=== PATIENT | male | born 1965 | race Caucasian/White ===

== ENCOUNTER 2023-10-26 09:10 | Inpatient (IN) | payer BC ==
[~2023-10-26] VITALS: Ht 167.6 cm; Wt 95.7 kg
[2023-11-07] VITALS (15 sets, daily range): BP systolic 110–138; BP diastolic 65–88; PULSE 91–118; TEMP 97.6–99.7
[2023-11-07 08:24] LABS: HEMATOCRIT 44.9 % (42.0-52.0); HEMOGLOBIN 15.8 g/dl (13.5-18.0); MEAN CELL VOLUME 88 fl (80.0-100.0); MEAN CORPUSCULAR HEMOGLOBIN 31 pg (27-31); MEAN CORPUSCULAR HGB CONC 35 g/dl (33.0-37.0); MEAN PLATELET VOLUME 8.5 fl (7.4-10.4); PLATELET COUNT 291 K/mm3 (130-400); RED BLOOD COUNT 5.13 M/mm3 (4.20-5.60)
[2023-11-07] MEDS ORDERED: TRICOR145 MG PO (08:27)
[2023-11-07 08:38] LABS: CALCIUM 9.3 mg/dL (8.4-10.2); CREATININE, serum 1.28 mg/dL (0.72-1.25); POTASSIUM 4.2 mmol/L (3.5-4.5)
--- NOTE | 2023-11-07 08:41 | NUR ---
0735-PATIENT ARRIVED TO [facility] [place] [facility] VIA AMBULATION, GAIT STEADY, ALERT AND ORIENTED ON ARRIVAL. CONSENTS REVIEWED AND SIGNED. ALLERGIES, MEDICATIONS, MEDICAL HISTORY REVIEWED, PLAN OF CARE DISCUSSED AND QUESTIONS INVITED. PATIENT CHANGED INTO GOWN INDEPENDENTLY, WARM BLANKET PROVIDED. VITAL SIGNS TAKEN, VSS. RT AT BEDSIDE FOR EKG. LAB AT BEDSIDE, IV STARTED TO LH AND LABS DRAWN. PO MEDICATIONS AND IV FLUIDS AND ANTIBIOTICS STARTED PER ORDER. SPOUSE BROUGHT TO BEDSIDE. PATIENT TAKEN TO PACU FOR BLOCK, ALL BELONGINGS TAKEN TO ROOM 347 AND GLASSES PLACED ON BEDSIDE TABLE.
--- NOTE | 2023-11-07 14:37 | NUR ---
Pt arrived to the floor recently from [facility]. Pt is alert and oriented, sleepy but does wake easily. Pt does have family at bedside. ABD with 5 lap sites all well approximated with no drainage noted. Pt is tolerating ice water. Schedule tylenol given. Pt denies wanting any other clear liquids at this time. Bowel sounds absent, lung sounds clear and heart rate regular. Pt does have SCDs on bilaterally and IVF infusing to his left hand IV. Pt was oriented to his room as well as family in the room. No needs at this time, call light within reach
--- NOTE | 2023-11-07 16:15 | NUR ---
PATIENT ALERT AND ORIENTED X4. VSS. PATIENT DROWSY, DENIES PAIN AT THIS TIME. LAPS X4, CDI WITH SKIN GLUE. ONE LOW TRANSVERSE CDI WITH SKIN GLUE. PATIENT DENIES PAIN AT THIS TIME. IV TO LEFT HAND WITH LR RUNNING AT 75ML/HOUR. PATIENT RESTING IN BED ON POST OP VITALS. PATIENT ON 1L NC, RA BASELINE. NO FURTHER NEEDS. CALL LIGHT IN REACH.
--- NOTE | 2023-11-07 16:49 | NUR ---
PATIENT VERY DROWSY, ABLE TO TOLERATE ICE CHIPS AND JELL-O.
--- NOTE | 2023-11-07 18:31 | NUR ---
PATIENT OFF OF POST OP VITALS. PATIENT ON RA. RATING PAIN AT 3/10, NO NEED FOR PAIN MEDICATIONS. PATIENT TOLERATING CLEARS. PASSING GAS, VOIDING. NO BM.
--- NOTE | 2023-11-07 19:04 | NUR ---
awake resting in bed, bedside shift report received from LE Mcmillan
--- NOTE | 2023-11-07 19:45 | NUR ---
full assessment completed, see interventions for further info, assisted up to bathroom, he states he had a small bowel movement, he states it was somewhat semi formed and also loose, asked him to let staff assess if he has another, verbalizes understanding
--- NOTE | 2023-11-07 21:04 | NUR ---
assisted up to bathroom by CNAS, cardiopulmonary notified of need for patient to have incentive spirometer
--- NOTE | 2023-11-07 22:30 | NUR ---
appears to be sleeping, in bed with lights off, eyes closed, resp quiet and easy
[2023-11-08] VITALS (11 sets, daily range): BP systolic 99–126; BP diastolic 61–74; PULSE 82–102; TEMP 97.5–98.5
--- NOTE | 2023-11-08 01:44 | NUR ---
appears to be sleeping, awakened for scheduled tylenol, denies other needs
--- NOTE | 2023-11-08 04:30 | NUR ---
awake looking at his phone, denies needs or pain
--- NOTE | 2023-11-08 05:26 | NUR ---
has slept off and on throught the night and ambulated to bathroom as needed,
--- NOTE | 2023-11-08 06:58 | NUR ---
bedside shift report given to LE Millan
[2023-11-08 07:32] LABS: HEMATOCRIT 39.2 % (42.0-52.0)
[2023-11-08 07:39] LABS: HEMOGLOBIN 13.2 g/dl (13.5-18.0)
[2023-11-08 07:57] LABS: CALCIUM 9.2 mg/dL (8.4-10.2); CREATININE, serum 1.27 mg/dL (0.72-1.25); MAGNESIUM 1.8 mg/dL (1.6-2.6); PHOSPHOROUS 2.4 mg/dL (2.3-4.7); POTASSIUM 3.9 mmol/L (3.5-4.5)
--- NOTE | 2023-11-08 10:06 | NUR ---
Initial visit; Patient and his thanked Die Drawing Checker for looking in on him and offering a thorough and rapid healing and God's blessings.
--- NOTE | 2023-11-08 10:18 | NUR ---
PATIENT ALERT AND ORIENTED X4. VSS. PATIENT HERE FOR SOLE LAP HEMICOLECTOMY. LAP SITES X4, ONE LOW TRANSVERSE. ALL CDI WITH SKIN GLUE. PATIENT REPORTS PAIN 3/10, DENIES NEED FOR PAIN MEDS. TOLERATING FULL LIQUIDS, HAVING 3 SMALL BM'S THIS MORNING. WILL ADVANCE DIET TO LOW FIBER. IV INT TO LEFT HAND. FLUSHES WELL. NO FURTHER NEEDS. CALL LIGHT IN REACH.
--- NOTE | 2023-11-08 10:47 | NUR ---
ARCENIO Student identified self as ARCENIO Student and completed intake with patient and Neeta at bedside. Patient lives in [place], [place] with his Neeta (ph#[phone]). Patient sees Dr. Charity Kenyon for primary care and prefers to obtain medications from [facility]. Patient stated that he has not had any issues with affording medications. Patient stated that he does not have a DPOA-HC and is currently not interested in completing one. Patient reported that he is independent with ADLs and does not utilize any DME. Patient is covered by [employer] [facility] for insurance. Patient stated that he plans on returning home at time of discharge. Discharge Plan: Home
[2023-11-08] MEDS ORDERED: MAG PO (12:55)
[2023-11-08] MEDS ORDERED: L-THEANINE200 MG PO (12:55)
[2023-11-08] MEDS ORDERED: MASON NATURAL1200 MG PO (12:56)
[2023-11-08] MEDS ORDERED: OSCAL 500 TAB500 MG PO (12:56)
[2023-11-08] MEDS ORDERED: APIGENIN (12:57)
--- NOTE | 2023-11-08 16:39 | NUR ---
PATIENT REPORTS PAIN IS 5/10, REQUESTS TO CONTINUE TO MANAGE PAIN WITH TYLENOL/MOTRIN. PATIENT REPORTS 3 LOOSE, BM'S TODAY. REPORTS PAIN IS INCREASING, PATIENT ENCOURAGED TO AMBULATE HALLS.
--- NOTE | 2023-11-08 18:55 | NUR ---
ambulating in [place] independently, bedside shift report received from LE Mcmillan
--- NOTE | 2023-11-08 19:45 | NUR ---
resting in bed, full assessment completed, see interventions for further info
--- NOTE | 2023-11-08 22:00 | NUR ---
appears to be sleeping, in bed with eyes closed, resp quiet and easy
--- NOTE | 2023-11-08 23:00 | NUR ---
dozing, arouses easily and scheduled tylenol given, denies needs
[2023-11-09 03:56] VITALS: BP 111/71; PULSE 77; TEMP 98.2
[2023-11-09 04:03] VITALS: BP_SYST 111
--- NOTE | 2023-11-09 04:47 | NUR ---
resting in bed, given scheduled tylenol, states has slept off and on during the night, has been up to bathroom and emptied bladder and continues to deny pain or needs
--- NOTE | 2023-11-09 05:10 | NUR ---
up and ambulating in [place] independently
--- NOTE | 2023-11-09 06:45 | NUR ---
bedside shift report given to LE Johnson
[2023-11-09 07:40] VITALS: BP 131/75; PULSE 76; TEMP 97.8
[2023-11-09 08:00] VITALS: BP_SYST 131
--- NOTE | 2023-11-09 09:00 | NUR ---
PATIENT AMBULATING IN HALLS WITH AND TOLERATING ACTIVITY WELL.
[2023-11-09 11:31] VITALS: BP 118/72; PULSE 76; TEMP 97.9
[2023-11-09] MEDS ORDERED: NORCO 325 MG-51 TAB PO (12:38)
--- NOTE | 2023-11-09 13:15 | NUR ---
PATIENT DISCHARGING HOME. GAVE DISCHARGE INSTRUCTIONS, E-SCRIPT SENT, AND DISCUSSED F/U APT. ANSWERED QUESTIONS/CONCERNS. DC'D LEFT HAND IV SITE AND COVERED WITH [employer]. PATIENT IS DRESSED, PACKED AND DISCHARGED TO [facility] VIA AMBULATORY WITH .
[2023-11-09 13:20] VITALS: BP_SYST 118
== END 2023-11-09 13:15 | disposition home or self-care (01) | DRG 331 ==
LOC: INPTSU 11-07 07:20 → SURG 11-07 09:30
PROVIDERS: Nurse Anesthetist, Certified Registered; ADMIT Surgery
PROC: 0DTF4ZZ Resection of Right Large Intestine, Percutaneous Endoscopic Approach (ICD-10-PCS; principal; 2023-11-08)
PROC: 8E0W4CZ Robotic Assisted Procedure of Trunk Region, Percutaneous Endoscopic Approach (ICD-10-PCS; 2023-11-08)
DX: C18.3 Malignant neoplasm of hepatic flexure (principal); Z23 Encounter for immunization
CPT/HCPCS: A4314; A9284; J0690; J1100; J1650; J1836; J2250; J2371; J2405; J2704; J2710; J2795; J3010; J7120

== ENCOUNTER → 2024-02-25 | Outpatient (CLI) | payer BC ==
[~2024-02-25] MED LIST: APIGENIN; L-THEANINE200 MG PO; MAG PO; MASON NATURAL1200 MG PO; NORCO 325 MG-51 TAB PO; OSCAL 500 TAB500 MG PO; TRICOR145 MG PO
[2024-02-25 21:39] LABS: BAND 3 % (0-10); LYMPHOCYTE 41 % (20.0-51.0); NEUTROPHILS 51 % (42.0-75.2)
[2024-02-25 21:45] LABS: ANISOCYTOSIS 1+; PLATELET ESTIMATE NORMAL (NORMAL)
== END ==
LOC: ZCOL.LAB 18:54
PROVIDERS: Family Medicine
DX: C18.4 Malignant neoplasm of transverse colon (principal)